=== PATIENT | male | born 1940 | race Caucasian/White ===

== ENCOUNTER 2019-12-18 06:38 | Inpatient (IN) ==
[2019-12-18] MEDS ORDERED: *HR* FentaNYL (PF) 100 MCG/2 ML VIAL ONE (07:09)
[2019-12-18] MEDS ORDERED: Dexamethasone 4 MG/ML VIAL ONE (07:09)
[2019-12-18] MEDS ORDERED: Lidocaine -MPF 2% 2 ML VIAL ONE ×2 (07:09→12:39)
[2019-12-18] MEDS ORDERED: *HR* Succinylcholine 200 MG/10 ML VIAL IVP ONE (07:09)
[2019-12-18] MEDS ORDERED: *HR* Rocuronium Bromide 50 MG/5 ML VIAL ONE ×2 (07:09→10:59)
[2019-12-18] MEDS ORDERED: *HR* Propofol 200 MG/20 ML VIAL IVP ONE ×2 (07:09→12:18)
[2019-12-18] MEDS ORDERED: Ondansetron 4 MG/2 ML VIAL ONE (07:09)
[2019-12-18] MEDS ORDERED: cefOXitin 2,000 MG in Water for inj. (sterile) 20 ML IVP ONE (07:21)
[2019-12-18] MEDS ORDERED: Ringers Solution, Lactated 1,000 ML IVC SCH (07:30)
[2019-12-18] MEDS ORDERED: *HR* Promethazine 25 MG/ML VIAL IVP PRN (07:41)
[2019-12-18] MEDS ORDERED: Ondansetron 4 MG/2 ML VIAL IVP ONE (07:41)
[2019-12-18] MEDS ORDERED: *HR* OxyCODONE Immed Rel 5 MG TABLET PO PRN (07:41)
[2019-12-18] MEDS ORDERED: *HR* HYDROmorphone PF 0.5 MG/0.5 ML SYRINGE IVP PRN (07:41)
[2019-12-18] MEDS ORDERED: Acetaminophen IV 1,000 MG/100 ML INFUS..BTL ONE (09:17)
[2019-12-18] MEDS ORDERED: CefOXitin 2,000 MG VIAL ONE (09:21)
[2019-12-18] MEDS ORDERED: *HR* Magnesium Sulfate 1 GM/2 ML VIAL ONE (09:45)
[2019-12-18] MEDS ORDERED: EPHEDrine 50 MG/ML VIAL ONE (10:12)
[2019-12-18] MEDS ORDERED: *HR* HYDROMORPHONE 2 MG/ML VIAL ONE (11:59)
[2019-12-18] MEDS ORDERED: Ondansetron 4 MG/2 ML VIAL IVP PRN (13:53)
[2019-12-18] MEDS ORDERED: Naloxone 0.4 MG/ML INJ IVP PRN (13:53)
[2019-12-18] MEDS: 0.9 % Sodium Chloride 1,000 ML IVC SCH (17:57)
[2019-12-18] MEDS: Ketorolac 15 MG/ML VIAL IVP SCH (17:59)
[2019-12-18] MEDS: *HR* Heparin 5,000 UNIT/ML VIAL SQ SCH (18:05)
[2019-12-19] MEDS: Ketorolac 15 MG/ML VIAL IVP SCH ×4 (00:27→18:02)
[2019-12-19] MEDS: 0.9 % Sodium Chloride 1,000 ML IVC SCH (04:48)
[2019-12-19 06:43] LABS: Basophils % 0.1 %; Hematocrit 43.6 % (37.5-50.1); Hemoglobin 13.7 g/dL (12.9-16.9); Immature Granulocytes % 0.6 % (0-4); Lymphocytes # 0.7 K/mcL (0.6-4.6); Lymphocytes % 5.4 %; Mean Corpuscular HGB Conc 31.4 g/dL (31.6-35.5); Mean Corpuscular Hemoglobin 29.2 pg (28.0-33.3); Mean Platelet Volume 9.5 fL (9.4-12.4); Monocytes # 0.7 K/mcL (0.0-1.3); Monocytes % 5.1 %; Platelet Count 182 K/mcL (140-400); Red Blood Count 4.69 M/mcL (4.19-5.50); Red Cell Distribution Width 16.4 % (11.5-14.5); Segmented Neutrophils % 88.8 %
[2019-12-19 06:49] LABS: Neutrophils # 11.3 K/mcL (1.6-8.9); White Blood Count 12.7 K/mcL (4.3-11.1)
[2019-12-19 06:54] LABS: BUN/Creatinine Ratio 18 (6-26); Blood Urea Nitrogen 21 mg/dL (8-23); Calcium 9.3 mg/dL (8.6-10.3); Carbon Dioxide 27 mEq/L (23-29); Chloride 102 mEq/L (98-107); Glucose 141 mg/dL (70-105); Osmolality,Calculated 289 (280-300); Potassium 4.9 mEq/L (3.5-5.1); Sodium 137 mEq/L (136-145); eGFR For African Americans > 60 (> 60); eGFR For Non-African Americans 60 (> 60)
[2019-12-19] MEDS: *HR* Heparin 5,000 UNIT/ML VIAL SQ SCH ×2 (07:15→18:02)
[2019-12-19] MEDS ORDERED: Furosemide 40 MG TABLET PO PRN (11:25)
[2019-12-19] MEDS ORDERED: Pantoprazole 40 MG VIAL IVP ONE (11:26)
[2019-12-19] MEDS ORDERED: Simethicone 80 MG TAB.CHEW PO PRN (11:27)
[2019-12-19] MEDS: DilTIAZem CD (24hr) 240 MG CAP.ER.24H PO SCH (12:19)
[2019-12-20] MEDS: Ketorolac 15 MG/ML VIAL IVP SCH ×5 (00:14→23:10)
[2019-12-20] MEDS: *HR* Heparin 5,000 UNIT/ML VIAL SQ SCH ×2 (05:15→17:32)
[2019-12-20 05:47] LABS: Basophils % 0.2 %; Eosinophils % 0.2 %; Hematocrit 40.9 % (37.5-50.1); Immature Granulocytes % 0.3 % (0-4); Lymphocytes # 1.1 K/mcL (0.6-4.6); Lymphocytes % 8.5 %; Mean Corpuscular HGB Conc 31.8 g/dL (31.6-35.5); Mean Corpuscular Hemoglobin 29.7 pg (28.0-33.3); Mean Corpuscular Volume 93.4 fL (83.0-100.0); Mean Platelet Volume 9.1 fL (9.4-12.4); Monocytes # 0.9 K/mcL (0.0-1.3); Monocytes % 7.1 %; Neutrophils # 10.4 K/mcL (1.6-8.9); Platelet Count 163 K/mcL (140-400); Red Blood Count 4.38 M/mcL (4.19-5.50); Red Cell Distribution Width 16.6 % (11.5-14.5); Segmented Neutrophils % 83.7 %; White Blood Count 12.5 K/mcL (4.3-11.1)
[2019-12-20 06:05] LABS: BUN/Creatinine Ratio 22 (6-26); Blood Urea Nitrogen 24 mg/dL (8-23); Calcium 9.1 mg/dL (8.6-10.3); Carbon Dioxide 25 mEq/L (23-29); Chloride 105 mEq/L (98-107); Glucose 107 mg/dL (70-105); Magnesium 2.1 mg/dL (1.6-2.6); Osmolality,Calculated 285 (280-300); Phosphorous 3.3 mg/dL (2.7-4.5); Potassium 4.2 mEq/L (3.5-5.1); Sodium 135 mEq/L (136-145); eGFR For African Americans > 60 (> 60); eGFR For Non-African Americans > 60 (> 60)
[2019-12-20] MEDS: DilTIAZem CD (24hr) 240 MG CAP.ER.24H PO SCH (07:37)
[2019-12-20] MEDS: Aspirin Enteric Coated 81 MG Tablet PO SCH (07:37)
[2019-12-21 01:07] LABS: Basophils # 0.1 K/mcL (0.0-0.2); Basophils % 0.5 %; Eosinophils # 0.2 K/mcL (0.0-0.6); Eosinophils % 1.8 %; Hematocrit 41.4 % (37.5-50.1); Hemoglobin 13.1 g/dL (12.9-16.9); Immature Granulocytes % 0.4 % (0-4); Lymphocytes # 1.7 K/mcL (0.6-4.6); Lymphocytes % 17.3 %; Mean Corpuscular HGB Conc 31.6 g/dL (31.6-35.5); Mean Corpuscular Hemoglobin 29.5 pg (28.0-33.3); Mean Corpuscular Volume 93.2 fL (83.0-100.0); Mean Platelet Volume 9.3 fL (9.4-12.4); Monocytes # 0.9 K/mcL (0.0-1.3); Monocytes % 8.7 %; Neutrophils # 7.1 K/mcL (1.6-8.9); Platelet Count 177 K/mcL (140-400); Red Blood Count 4.44 M/mcL (4.19-5.50); Red Cell Distribution Width 16.7 % (11.5-14.5); Segmented Neutrophils % 71.3 %; White Blood Count 9.9 K/mcL (4.3-11.1)
[2019-12-21 01:27] LABS: BUN/Creatinine Ratio 21 (6-26); Blood Urea Nitrogen 22 mg/dL (8-23); Calcium 9.1 mg/dL (8.6-10.3); Carbon Dioxide 25 mEq/L (23-29); Chloride 104 mEq/L (98-107); Glucose 98 mg/dL (70-105); Magnesium 2.1 mg/dL (1.6-2.6); Osmolality,Calculated 283 (280-300); Phosphorous 3.4 mg/dL (2.7-4.5); Potassium 4.6 mEq/L (3.5-5.1); Sodium 135 mEq/L (136-145); eGFR For African Americans > 60 (> 60); eGFR For Non-African Americans > 60 (> 60)
[2019-12-21] MEDS: *HR* Heparin 5,000 UNIT/ML VIAL SQ SCH (05:04)
[2019-12-21] MEDS: Ketorolac 15 MG/ML VIAL IVP SCH (05:33)
[2019-12-21 07:04] VITALS: BP 150/78
[2019-12-21] MEDS: Aspirin Enteric Coated 81 MG Tablet PO SCH (07:46)
[2019-12-21] MEDS: DilTIAZem CD (24hr) 240 MG CAP.ER.24H PO SCH (07:47)
== END 2019-12-21 10:00 | disposition home or self-care (01) | DRG 330 ==
LOC: SAMDAY 06:38 → 3ANU 13:14
PROVIDERS: ADMIT Surgery; ATTEND Surgery

== ENCOUNTER 2021-01-26 14:26 | Observation (INO) ==
[2021-01-26] MEDS ORDERED: 0.9 % Sodium Chloride 1,000 ML IVC ONE (15:04)
[2021-01-26] MEDS ORDERED: Isovue-370 500 ML BOTTLE IVP ONE ×2 (15:05→15:20)
[2021-01-26 15:14] LABS: Hemoglobin 12.9 g/dL (12.9-16.9); Mean Corpuscular HGB Conc 31.5 g/dL (31.6-35.5); Mean Corpuscular Hemoglobin 29.9 pg (28.0-33.3); Mean Corpuscular Volume 94.9 fL (83.0-100.0); Mean Platelet Volume 8.8 fL (9.4-12.4); Platelet Count 176 K/mcL (140-400); Red Blood Count 4.32 M/mcL (4.19-5.50); Red Cell Distribution Width 14.8 % (11.5-14.5); White Blood Count 10.1 K/mcL (4.3-11.1)
[2021-01-26 15:38] LABS: INR 1.2; Prothrombin Time 13.9 Seconds (9.4-12.1)
[2021-01-26 15:48] LABS: BUN/Creatinine Ratio 23 (6-26); Blood Urea Nitrogen 27 mg/dL (8-23); Calcium 9.4 mg/dL (8.6-10.3); Carbon Dioxide 22 mEq/L (23-29); Chloride 107 mEq/L (98-107); Glucose 108 mg/dL (70-105); Osmolality,Calculated 294 (280-300); Potassium 4.1 mEq/L (3.5-5.1); Sodium 139 mEq/L (136-145); eGFR For African Americans > 60 (> 60); eGFR For Non-African Americans 58 (> 60)
[2021-01-26 15:55] LABS: Troponin I < 0.03 ng/mL (< 0.04)
[2021-01-26] MEDS ORDERED: Ondansetron 4 MG/2 ML VIAL IVP PRN (17:34)
[2021-01-26] MEDS ORDERED: Naloxone 0.4 MG/ML INJ IVP PRN (17:34)
[2021-01-26] MEDS ORDERED: SODIUM CHLORIDE/NAHCO3/KCL/PEG 4,000 ML SOLN.RECON PO ONE ×2 (18:06)
[2021-01-26] MEDS ORDERED: *HR* Metoprolol 5 MG/5 ML VIAL IVP PRN (18:30)
[2021-01-26] MEDS: 0.9 % Sodium Chloride 1,000 ML IVC SCH (18:31)
[2021-01-26 18:40] LABS: Hematocrit 34.3 % (37.5-50.1)
[2021-01-26 18:42] LABS: Hemoglobin 10.8 g/dL (12.9-16.9)
[2021-01-26] MEDS ORDERED: Famotidine 20 MG/2 ML VIAL ONE (21:51)
[2021-01-26] MEDS ORDERED: Lidocaine -MPF 2% 2 ML VIAL ONE ×2 (22:11→22:14)
[2021-01-26] MEDS ORDERED: Ondansetron 4 MG/2 ML VIAL ONE (22:11)
[2021-01-26] MEDS ORDERED: *HR* FentaNYL (PF) 100 MCG/2 ML VIAL ONE (22:12)
[2021-01-26] MEDS ORDERED: Ringers Solution, Lactated 1,000 ML IVC SCH (22:15)
[2021-01-26] MEDS ORDERED: *HR* EPINEPHrine 1 MG/10 ML SYRINGE INTRATRACH PRN (22:34)
[2021-01-27 02:44] LABS: Basophils # 0.1 K/mcL (0.0-0.2); Basophils % 0.5 %; Eosinophils % 0.4 %; Hematocrit 33.2 % (37.5-50.1); Hemoglobin 10.5 g/dL (12.9-16.9); Immature Granulocytes % 0.5 % (0-4); Lymphocytes # 1.4 K/mcL (0.6-4.6); Lymphocytes % 14.3 %; Mean Corpuscular HGB Conc 31.6 g/dL (31.6-35.5); Mean Corpuscular Hemoglobin 30.3 pg (28.0-33.3); Mean Platelet Volume 8.7 fL (9.4-12.4); Monocytes # 0.6 K/mcL (0.0-1.3); Monocytes % 6.5 %; Neutrophils # 7.4 K/mcL (1.6-8.9); Platelet Count 130 K/mcL (140-400); Red Blood Count 3.46 M/mcL (4.19-5.50); Red Cell Distribution Width 15.2 % (11.5-14.5); Segmented Neutrophils % 77.8 %; White Blood Count 9.5 K/mcL (4.3-11.1)
[2021-01-27 02:58] LABS: BUN/Creatinine Ratio 22 (6-26); Blood Urea Nitrogen 25 mg/dL (8-23); Calcium 8.3 mg/dL (8.6-10.3); Carbon Dioxide 26 mEq/L (23-29); Chloride 107 mEq/L (98-107); Glucose 122 mg/dL (70-105); Osmolality,Calculated 292 (280-300); Potassium 4.6 mEq/L (3.5-5.1); Sodium 138 mEq/L (136-145); eGFR For African Americans > 60 (> 60); eGFR For Non-African Americans > 60 (> 60)
[2021-01-27] MEDS ORDERED: Pantoprazole 40 MG VIAL IVP SCH (09:00)
[2021-01-27 09:37] LABS: Hematocrit 32.3 % (37.5-50.1)
[2021-01-27] MEDS: 0.9 % Sodium Chloride 1,000 ML IVC SCH (10:00)
[2021-01-27 10:57] VITALS: BP 136/82
[2021-01-27] MEDS ORDERED: DilTIAZem CD (24hr) 240 MG CAP.ER.24H PO SCH (11:45)
[2021-01-27 15:21] LABS: Hematocrit 31.6 % (37.5-50.1); Hemoglobin 10.1 g/dL (12.9-16.9)
== END 2021-01-27 17:30 | disposition home or self-care (01) ==
LOC: EMEROOARM 14:26 → 2ANU 14:26 → SUATTDRO 19:08 → 2ANU 19:35
PROVIDERS: ADMIT Internal Medicine; ATTEND Family Medicine
PROC: ENDOCCB (2021-01-26 22:00)

== ENCOUNTER 2021-01-29 05:39 | Observation (INO) ==
[2021-01-29] MEDS: 0.9 % Sodium Chloride 1,000 ML IVC SCH ×5 (06:16→21:43)
[2021-01-29 06:37] LABS: Basophils # 0.1 K/mcL (0.0-0.2); Eosinophils # 0.3 K/mcL (0.0-0.6); Eosinophils % 3.4 %; Hematocrit 31.3 % (37.5-50.1); Hemoglobin 9.8 g/dL (12.9-16.9); Immature Granulocytes % 1.1 % (0-4); Lymphocytes % 13.5 %; Mean Corpuscular HGB Conc 31.3 g/dL (31.6-35.5); Mean Corpuscular Hemoglobin 30.5 pg (28.0-33.3); Mean Corpuscular Volume 97.5 fL (83.0-100.0); Monocytes # 0.5 K/mcL (0.0-1.3); Monocytes % 6.3 %; Neutrophils # 5.4 K/mcL (1.6-8.9); Platelet Count 145 K/mcL (140-400); Red Blood Count 3.21 M/mcL (4.19-5.50); Red Cell Distribution Width 15.3 % (11.5-14.5); Segmented Neutrophils % 74.7 %; White Blood Count 7.3 K/mcL (4.3-11.1)
[2021-01-29] MEDS ORDERED: SODIUM CHLORIDE/NAHCO3/KCL/PEG 4,000 ML SOLN.RECON PO ONE (06:38)
[2021-01-29 06:44] LABS: INR 1.2; Prothrombin Time 13.7 Seconds (9.4-12.1)
[2021-01-29 06:47] LABS: Activated Partial Thrombo Time 29.9 Seconds (26.0-36.0)
[2021-01-29 06:56] LABS: BUN/Creatinine Ratio 17 (6-26); Blood Urea Nitrogen 20 mg/dL (8-23); Carbon Dioxide 25 mEq/L (23-29); Chloride 106 mEq/L (98-107); Glucose 112 mg/dL (70-105); Osmolality,Calculated 289 (280-300); Sodium 138 mEq/L (136-145); eGFR For African Americans > 60 (> 60); eGFR For Non-African Americans > 60 (> 60)
[2021-01-29] MEDS ORDERED: Ondansetron 4 MG/2 ML VIAL IVP PRN (07:58)
[2021-01-29] MEDS ORDERED: Acetaminophen 325 MG TABLET PO PRN (07:58)
[2021-01-29] MEDS ORDERED: Naloxone 0.4 MG/ML INJ IVP PRN (07:58)
[2021-01-29] MEDS ORDERED: Lidocaine -MPF 2% 2 ML VIAL ONE (13:52)
[2021-01-29 14:16] LABS: Hematocrit 32.6 % (37.5-50.1); Hemoglobin 10.2 g/dL (12.9-16.9)
[2021-01-29 17:54] LABS: Hematocrit 28.7 % (37.5-50.1)
[2021-01-30 02:43] LABS: Hemoglobin 8.6 g/dL (12.9-16.9); Mean Corpuscular HGB Conc 31.9 g/dL (31.6-35.5); Mean Corpuscular Hemoglobin 30.6 pg (28.0-33.3); Mean Corpuscular Volume 96.1 fL (83.0-100.0); Mean Platelet Volume 8.8 fL (9.4-12.4); Platelet Count 143 K/mcL (140-400); Red Blood Count 2.81 M/mcL (4.19-5.50); Red Cell Distribution Width 15.2 % (11.5-14.5); White Blood Count 7.9 K/mcL (4.3-11.1)
[2021-01-30 03:03] LABS: BUN/Creatinine Ratio 12 (6-26); Blood Urea Nitrogen 13 mg/dL (8-23); Calcium 8.6 mg/dL (8.6-10.3); Carbon Dioxide 26 mEq/L (23-29); Chloride 106 mEq/L (98-107); Glucose 104 mg/dL (70-105); Magnesium 1.8 mg/dL (1.6-2.6); Osmolality,Calculated 286 (280-300); Sodium 138 mEq/L (136-145); eGFR For African Americans > 60 (> 60); eGFR For Non-African Americans > 60 (> 60)
[2021-01-30] MEDS: DilTIAZem CD (24hr) 240 MG CAP.ER.24H PO SCH (08:23)
[2021-01-30 12:36] LABS: Hematocrit 28.4 % (37.5-50.1); Hemoglobin 8.7 g/dL (12.9-16.9)
[2021-01-31 01:12] LABS: Hemoglobin 8.7 g/dL (12.9-16.9)
[2021-01-31 08:11] VITALS: BP 115/77
[2021-01-31] MEDS: DilTIAZem CD (24hr) 240 MG CAP.ER.24H PO SCH (08:19)
== END 2021-01-31 10:05 | disposition home or self-care (01) ==
LOC: 3ANU 05:39 → EMEROOARM 05:39 → SUATTDRO 07:25 → 3ANU 08:55
PROVIDERS: ADMIT Internal Medicine; ATTEND Family Medicine
PROC: ENDOCCB (2021-01-29 15:30)